=== PATIENT | male | born 1975 | race Caucasian/White ===

== ENCOUNTER 2021-11-04 08:24 | Emergency (ER) | payer BC, SELFPAY ==
--- NOTE | 2021-11-04 08:31 | ED.EAR ---
HPI - Ear Problem General Chief complaint: Ear Stated complaint: ear inf Time Seen by Provider: 11/04/21 08:31 Source: patient and RN notes reviewed History of Present Illness HPI Narrative: Patient is a 46-year-old male who presents the urgent care with complaints of left ear pain, cough and congestion. Patient states that he does have tubes in bilateral ears. States that he feels like there is underwater with the left ear pain . Patient states he has been taking Flonase, Claritin and Sudafed for the last 3 days. Patient denies any fever, nausea or vomiting. No other acute complaints. No acute distress noted. Patient aware of the plan of care. Some parts of this dictation were generated by voice recognition software and may contain typographical and/or grammatical inaccuracies. Related Data Home Medications Medication Instructions Recorded Confirmed lisinopril 10 mg tablet 1 tablet PO DAILY 11/04/21 11/04/21 Allergies Allergy/AdvReac Type Severity Reaction Status Date / Time Penicillins Allergy Mild Hives Verified 11/04/21 08:38 Review of Systems Review of Systems: CONSTITUTIONAL: Denies fever, chills, or sweats. EYES: Denies visual changes, redness, or discharge. ENT: Reports of left otalgia and sinus congestion CARDIOVASCULAR: Denies chest pain, palpitations, or edema. RESPIRATORY: Reports of cough without dyspnea GASTROINTESTINAL: Denies abdominal pain, nausea, vomiting, or diarrhea. GENITOURINARY: Denies dysuria or hematuria. SKIN: Denies rash or itching. MUSCULOSKELETAL: Denies back pain, joint pain, or myalgia. NEUROLOGIC: Denies headache, numbness, or weakness. All other systems reviewed are negative, except as documented in HPI. PMFSH Comments At the time of my signature, I reviewed and agree with the nursing past medical, surgical, social, and family history. There is no relevant family history pertinent to the patient complaint. Exam Narrative: GENERAL: This is a well-nourished, well-developed patient, in no apparent distress. HEAD: normocephalic, atraumatic. EYES: PERRL. Sclera clear/white. Vision is grossly intact. EARS: External ears normal, auditory canals clear and without drainage, notable tube to the right. Unable to visualize left tube due to large effusion and drainage. Left TM erythemic. Right TM normal without perforation. Hearing grossly intact. NOSE: External nose normal with no obvious nasal discharge, nares without redness, no rhinorrhea. THROAT: Mucous membranes moist, mild erythema noted posterior pharynx with moderate postnasal drainage. NECK: Neck supple CARDIOVASCULAR: Regular rate and rhythm without murmurs, gallops, or rubs. RESPIRATORY: Coarse wheezes throughout SKIN: warm, intact with no suspicious lesions or rash, good texture and turgor. NEURO: awake, alert, and oriented to person, place and time. There were no obvious focal neurologic abnormalities. EXTREMITIES: No clubbing, cyanosis, or edema. Course Course Level of Care: Express Care Visit Vital Signs Vital signs: Vital Signs Temperature 98.1 F 11/04/21 08:34 Pulse Rate 79 11/04/21 08:34 Respiratory Rate 16 11/04/21 08:34 Blood Pressure 167/120 H 11/04/21 08:34 Pulse Oximetry 100 11/04/21 08:34 Oxygen Delivery Room Air 11/04/21 08:34 Temperature 98.1 F 11/04/21 08:42 Pulse Rate 79 11/04/21 08:42 Respiratory Rate 16 11/04/21 08:42 Blood Pressure 167/120 H 11/04/21 08:42 Pulse Oximetry 100 11/04/21 08:42 Oxygen Delivery Room Air 11/04/21 08:42 Reviewed-patient is informed that they may have pre-hypertension or hypertension based on a blood pressure reading in the department. I recommend the patient call the primary care provider listed on their discharge instructions or a physician of their choice this week to arrange follow-up for further evaluation of possible pre-hypertension or hypertension. Repeat manual blood pressure to the right arm 158/96 Medical Decision Britton
[2021-11-04 08:34] VITALS: BP 167/120; PULSE 79; RESP 16; TEMP 36.7; O2SAT 100
[2021-11-04 08:42] VITALS: BP 167/120; PULSE 79; RESP 16; TEMP 36.7; O2SAT 100
== END 2021-11-04 08:50 | disposition home or self-care (01) ==
PROVIDERS: Emergency Provider Nurse Practitioner Family; PCP Internal Medicine
DX: J40 Bronchitis, not specified as acute or chronic (principal); H66.92 Otitis media, unspecified, left ear; I10 Essential (primary) hypertension
CPT/HCPCS: 99213; G0463

== ENCOUNTER 2022-10-09 01:09 | Emergency (ER) | payer BC, SELFPAY ==
[2022-10-09] VITALS (30 sets, daily range): BP systolic 117–157; BP diastolic 72–92; PULSE 71–88; RESP 14–24; TEMP 36.1–36.6; O2SAT 95–100
--- NOTE | ~2022-10-09 | CT_ITS ---
CT of the Abdomen and Pelvis: Indication: Abdominal pain Technique: 2.5 mm axial scans were obtained through the abdomen and pelvis following intravenous adm inistration of 100 cc of Omnipaque 350. Dose reduction technique was used on this scan by utilizing a utomated exposure control and iterative reconstruction technique. The dose-length product (DLP) was 1 336.46 mGy-cm. Findings: Scans through the lung bases are unremarkable. Suspected mild diffuse fatty infiltration of liver. The spleen, pancreas, adrenals and kidneys are wi thin normal limits. Cholecystectomy clips are present. There are atherosclerotic calcifications of th e aorta. No lymphadenopathy. No bowel obstruction or bowel wall thickening. There is no evidence to suggest acute appendicitis. Sm all fat-containing umbilical hernia noted. Images through the pelvis were performed. Urinary bladder unremarkable. Prostate gland and seminal ve sicles are unremarkable. No ascites. Impression: Suspected mild diffuse fatty infiltration of liver. Small fat-containing umbilical hernia. Reviewed, dictated and finalized at [facility]. Impression: Suspected mild diffuse fatty infiltration of liver. Small fat-containing umbilical hernia.
--- NOTE | 2022-10-09 01:39 | PC.NURSE ---
Patient states he is taking Glipizide and Pioglitazone recently prescribed by his doctor to see if he is pre-diabetic or type 2 diabetic.
--- NOTE | 2022-10-09 03:10 | ED.BACK ---
HPI - Back Pain/Injury General Chief Complaint: Back Pain/Injury <ARNAUD Vance Last Filed: 10/09/22 17:00> Stated Complaint: left back and left flank pain <ARNAUD Vance Last Filed: 10/09/22 17:00> Time Seen by Provider: 10/09/22 02:44 <ARNAUD Vance Last Filed: 10/09/22 17:00> Source: patient <ARNAUD Vance Last Filed: 10/09/22 17:00> Mode of arrival: ambulatory <ARNAUD Vance Last Filed: 10/09/22 17:00> Limitations: no limitations <ARNAUD Vance Last Filed: 10/09/22 17:00> History of Present Illness HPI Narrative: Patient is a 46-year-old male who presents to the ED with report of left flank and abdominal pain. Patient reports having pain every day for the last 1 month. He states pain is intermittent, worse with eating. Patient states when the pain becomes worse, his blood sugar elevates. He has been seen by his primary and at 2 separate emergency departments in [facility]. He states his blood work has come back abnormal with a high white count and he was told he has some sort of infection, but is not sure where. Per patient's med rec, he has been prescribed cefpodoxime, azithromycin, tizanidine, dexamethasone, doxycycline, and Tylenol with codeine all since 09/19. He was also started on glipizide and pioglitazone for his diabetes. He states his sugars have been in the 300s. Patient has not been taking anything else for his pain. Tonight, patient developed nausea and vomiting, which prompted his presentation. Denies any fevers, diarrhea, constipation, dysuria, hematuria, chest pain, difficulty breathing. <ARNAUD Vance Last Filed: 10/09/22 17:00> Related Data Home Medications: Home Medications Medication Instructions Recorded Confirmed lisinopril 10 mg tablet 1 tablet PO DAILY 11/04/21 11/04/21 <ARNAUD Vance Filed: 10/09/22 17:00> Allergies/Adverse Reactions: Allergies Allergy/AdvReac Type Severity Reaction Status Date / Time Penicillins Allergy Mild Hives Verified 10/09/22 01:09 <Carmel Conde PA-C - Last Filed: 10/09/22 17:00> Review of Systems Review of Systems: CONSTITUTIONAL: Denies fever, chills, or sweats. CARDIOVASCULAR: Denies chest pain. RESPIRATORY: Denies dyspnea. GASTROINTESTINAL: See HPI. GENITOURINARY: Denies dysuria or hematuria. SKIN: Denies rash or itching. MUSCULOSKELETAL: See HPI. NEUROLOGIC: Denies headache, numbness, or weakness. <Carmel Conde PA-C - Last Filed: 10/09/22 17:00> All systems reviewed & are unremarkable except as noted in HPI and below <Carmel Conde PA-C - Last Filed: 10/09/22 17:00> [facility] Past Medical History Medical History: Medical History (Updated 10/09/22 @ 06:28 by Lasha Partida MD) Diabetes mellitus HLD (hyperlipidemia) HTN (hypertension) <Carmel Conde PA-C - Last Filed: 10/09/22 17:00> Surgical History Surgical History: Surgical History (Updated 10/09/22 @ 03:15 by Carmel Conde PA-C) No pertinent past surgical history <Carmel Conde PA-C - Last Filed: 10/09/22 17:00> Social History Social History: Social History (Updated 10/09/22 @ 03:15 by Carmel Conde PA-C) Smoking status: Never smoker <Carmel Conde PA-C - Last Filed: 10/09/22 17:00> Exam Narrative: GENERAL: Well appearing, obese with BMI of 38.1, non-toxic, in no acute distress. HEAD: Normocephalic, atraumatic. NECK: Supple. No adenopathy, no masses. RESPIRATORY: Airway patent, respirations nonlabored. Clear to auscultation bilaterally, no rales, rhonchi, wheezing. CARDIOVASCULAR: Regular rate and rhythm without murmurs, rubs, or gallops. Radial pulses 2+ and equal bilaterally. ABDOMINAL: Soft, minimal tenderness in left upper/lateral abdomen, nondistended, no hepatosplenomegaly. Normoactive BS. MUSCULOSKELETAL:
[2022-10-09 03:45] LABS: Basophils Absolute Auto 0.1 K/mm3 (0.0-0.1); Basophils Percent Auto 0.4 % (0.2-1.2); Eosinophils Percent Auto 0.1 % (0-4.4); Hemoglobin 17.1 g/dL (14.0-18.0); Immature Granulocyte Absolute 0.09 K/mm3 (0.00-0.031); Immature Granulocyte Percent A 0.6 % (0-0.5); Lymphocytes Absolute Auto 2.36 K/mm3 (0.9-3.2); Lymphocytes Percent Auto 14.6 % (18.3-44.2); Mean Corpuscular HGB Conc 35.6 g/dl (32-36); Mean Corpuscular Hemoglobin 33.4 pg (26-34); Mean Corpuscular Volume 93.8 fl (80-100); Monocytes Absolute Auto 0.5 K/mm3 (0.1-0.6); Monocytes Percent Auto 3.1 % (2.6-8.5); Neutrophils Absolute Auto 13.2 K/mm3 (1.3-6.7); Neutrophils Percent Auto 81.2 % (45.5-73.1); Platelet Count Result 332 k/mm3 (150-375); Red Blood Count 5.12 M/mm3 (4.6-6.20); Red Cell Distribution Width 13.3 % (11.5-14.5); White Blood Count 16.2 K/mm3 (4.5-10.0)
[2022-10-09 03:48] LABS: Appearance Urine Clear (Clear); Bilirubin Urine Negative (Negative); Blood Urine Negative (Negative); Color Urine Yellow (Yellow); Glucose Urine UA 1+ mg/dL (Negative); Ketones Urine Negative (Negative); Leukocyte Esterase Ur Negative LEU/UL (Negative); Nitrate Urine Negative (Negative); Protein Urine Negative (Negative); Specific Grav Ur 1.015 (1.001-1.035); Urobilinogen Urine 0.2 mg/dL (<2.0)
[2022-10-09 03:53] LABS: Add Urine Microscopic? NO
[2022-10-09 03:58] LABS: Alanine Aminotransferase 209 U/L (6-50); Albumin Level 5.1 g/dL (3.5-5.1); Alkaline Phosphatase 96 U/L (38-126); Anion Gap 16 mmol/L (8-16); Aspartate Amino Transferase 280 U/L (17-59); Bilirubin,Total 0.8 mg/dL (0.2-1.3); Blood Urea Nitrogen 28 mg/dL (9-20); Calcium 10.3 mg/dL (8.4-10.2); Carbon Dioxide 18 mmol/L (22-30); Chloride 100 mmol/L (98-107); Estimated CRCL calculation 107 ml/min; Estimated Glomerular Filt Rate > 60; Glucose 197 mg/dL (65-110); Lactic Acid Reflex 1.6 mmol/L (0.7-2.0); Lipase 401 U/L (23-300); Potassium 4.2 mmol/L (3.4-5.0); Sodium 134 mmol/L (137-145)
[2022-10-09] MEDS: SODIUM CHLORIDE 0.9% IV 1,000 ML 999 ML IV CONT (04:08)
== END 2022-10-09 06:41 | disposition home or self-care (01) ==
PROVIDERS: Emergency Provider Physician Assistant; PCP Internal Medicine
DX: M54.9 Dorsalgia, unspecified (principal); E11.9 Type 2 diabetes mellitus without complications; I10 Essential (primary) hypertension; E78.5 Hyperlipidemia, unspecified; K42.9 Umbilical hernia without obstruction or gangrene; R93.2 Abnormal findings on diagnostic imaging of liver and biliary tract
CPT/HCPCS: 36415; 74177; 80053; 81003; 83605; 83690; 85025; 96360; 99284; J7030; Q9967